=== PATIENT | female | born 1980 | race Caucasian/White ===

== ENCOUNTER 2017-04-20 12:20 | Emergency (ER) | payer SELFPAY ==
--- NOTE | 2017-04-20 12:29 | EDM.PDOC ---
ED HPI GENERAL MEDICAL PROBLEM - General Chief Complaint: Lower Extremity Injury/Pain Stated Complaint: PT HURT RT FOOT Time Seen by Provider: 04/20/17 12:23 - History of Present Illness INITIAL COMMENTS - FREE TEXT/NARRATIVE: HISTORY AND PHYSICAL: History of present illness: Patient is a 36-year-old white female she thinks her right hip and buttock pain x2-3 months she's been seen by her private physician and has a more peripheral but she is yet to secure she is on gabapentin and is also use other medications without significant improvement she has had a short course of steroids although she states this was more related to heel spurs but does comment that this did not improve her buttock or hip pain. No fever chills or other complaints she has been given a pulmonary diagnosis of sciatica for which they've been trying to treat. Review of systems: As per history of present illness and below otherwise all systems reviewed and negative. Past medical history: As per history of present illness and as reviewed below otherwise noncontributory. Surgical history: As per history of present illness and as reviewed below otherwise noncontributory. Social history: No reported history of drug or alcohol abuse. Family history: As per history of present illness and as reviewed below otherwise noncontributory. Physical exam: HEENT: Atraumatic, normocephalic, pupils reactive, negative for conjunctival pallor or scleral icterus, mucous membranes moist, throat clear, neck supple, nontender, trachea midline. Lungs: Clear to auscultation, breath sounds equal bilaterally, chest nontender. Heart: S1S2, regular, negative for clicks, rubs, or JVD. Abdomen: Soft, nondistended, nontender. Negative for masses or hepatosplenomegaly. Negative for costovertebral tenderness. Pelvis: Stable nontender. Genitourinary: Deferred. Rectal: Deferred. Extremities: Atraumatic, negative for cords or calf pain. Neurovascular unremarkable. Neuro: Awake, alert, oriented. Cranial nerves II through XII unremarkable. Cerebellum unremarkable. Motor and sensory unremarkable throughout. Exam nonfocal. Back: Patient has pain over right sciatic notch Diagnostics: X-ray right hip with pelvis Therapeutics: Toradol 60 mg IM Impression: #1 probable sciatica Definitive disposition and diagnosis as appropriate pending reevaluation and review of above. - Related Data Allergies Allergy/AdvReac Type Severity Reaction Status Date / Time No Known Allergies Allergy Verified 03/16/15 16:09 Home Meds: Home Meds Norgestimate-Ethinyl Estradiol [Sprintec] 1 tab PO DAILY 03/16/15 [History] Omeprazole [Prilosec] 20 mg PO 03/16/15 [History] Social & Family History - Tobacco Use Smoking Status *Q: Never Smoker Second Hand Smoke Exposure: No - Alcohol Use Days Per Week of Alcohol Use: 0 - Recreational Drug Use Recreational Drug Use: No Review of Systems - Review of Systems Review Of Systems: ROS reveals no pertinent complaints other than HPI. ED EXAM, GENERAL - Physical Exam Exam: See Below (See dictated) Course - Vital Signs Last Recorded V/S: Last Vital Signs Temp 36.4 C 04/20/17 12:32 Pulse 96 04/20/17 12:32 Resp 18 04/20/17 12:32 BP 103/64 04/20/17 12:32 Pulse Ox 96 04/20/17 12:32 - Orders/Labs/Meds Orders: Active Orders 24 hr Category Date Time Status Hip Min 1V w Pelvis Rt [CR] Stat Exams 04/20/17 12:30 Ordered Meds: Medications Discontinued Medications Generic Name Dose Route Start Last Admin Trade Name Freq PRN Reason Stop Dose Admin Ketorolac Tromethamine 60 mg 04/20/17 12:30 Toradol IM 04/20/17 12:31 ONETIME ONE Departure - Departure Time of Disposition: 12:39 Disposition: Home, Self-Care 01 Condition: good Clinical Impression: Sciatica - Discharge Information Forms: ED Department Discharge Additional Instructions: The following information is given to patients seen in the emergency department who are being discharged to home. This information is to outline your options for follow-up care. We provide all patients seen in our emergency department with a follow-up referral. The need for follow-up, as well as the timing and circumstances, are variable depending upon the specifics of your emergency department visit. If you don't have a primary care physician on staff, we will provide you with a referral. We always advise you to contact your personal physician following an emergency department visit to inform them of the circumstance of the visit and for follow-up with them and/or the need for any referrals to a consulting specialist. The emergency department will also refer you to a specialist when appropriate. This referral assures that you have the opportunity for followup care with a specialist. All of these measure are taken in an effort to provide you with optimal care, which includes your followup. Under all circumstances we always encourage you to contact your private physician who remains a resource for coordinating your care. When calling for followup care, please make the office aware that this follow-up is from your recent emergency room visit. If for any reason you are refused follow-up, please contact the [facility] emergency department at and asked to speak to the emergency department charge nurse. Followup with orthopedic surgery as discussed follow up primary medical doctor in one to 2 days and return as needed as discussed - My Orders Last 24 Hours: My Active Orders 04/20/17 12:30 Hip Min 1V w Pelvis Rt [CR] Stat - Assessment/Plan Last 24 Hours: My Active Orders 04/20/17 12:30 Hip Min 1V w Pelvis Rt [CR] Stat
[2017-04-20] MEDS ORDERED: Ketorolac 60 MG/2 ML SDV IM ONE (12:30)
[2017-04-20 13:47] VITALS: BP 93/55
--- NOTE | 2017-04-22 14:34 | CR ---
EXAM DATE: 04/20/17 PATIENT'S AGE: 36 Patient: CLAUDIO SEVILLA Facility: [place], [place] Site . Site : [id number] Study: XRay Extremity Right [id number]/3/2017 1:24:49 PM Ordering Physician: Kendal Musa Final Report: Indication: Right hip pain. Comparison: None. Findings: Surgical clips overlying the pelvis. Bony mineralization is normal. The joint spaces are preserved and no fracture nor dislocation is identified. The sacroiliac joints are intact. Visualized lower lumbar spine is normal. Impression: No acute abnormality pelvis/right hip. Dictated by Sonia Zhou MD @ Apr 20 2017 2:09PM (Electronic Signature) Report Signed by Proxy. CARIDAD
== END 2017-04-20 13:40 | disposition home or self-care (01) ==
LOC: MW.ED 12:20
DX: M54.31 Sciatica, right side (principal); Z79.899 Other long term (current) drug therapy
CPT/HCPCS: 73501; 96372; 99283; J1885

== ENCOUNTER 2021-08-06 17:27 | Emergency (ER) | payer OTHER ==
[2021-08-06] MEDS ORDERED: Ketorolac 30 MG/ML SDV IVPUSH ONE (17:56)
[2021-08-06] MEDS ORDERED: Sodium Chloride 0.9% 1,000 ML IV ONE (17:56)
[2021-08-06] MEDS ORDERED: LORazepam 2 MG/ML SDV IVPUSH ONE (17:56)
--- NOTE | 2021-08-06 18:00 | EDM.PDOC ---
ED HPI GENERAL MEDICAL PROBLEM - General Chief Complaint: Headache Stated Complaint: MIGRAINE, NAUSEA Time Seen by Provider: 08/06/21 17:28 Source of Information: Reports: Patient History Limitations: Reports: No Limitations - History of Present Illness INITIAL COMMENTS - FREE TEXT/NARRATIVE: HISTORY AND PHYSICAL: History of present illness: Patient is a 41-year-old female who presents to the emergency room with complaints of migraine headache, nausea and light sensitivity. She states she was shopping this afternoon when the headache came on suddenly. She denies any injury, trauma or falls. She states the pain starts at the base of her scalp and wraps to the top of her head. She typically has migraines that are just directly behind the eye. She took Zofran ODT prior to arrival as she thought she was going to vomit. Patient denies any fever, chills, change in vision, syncope or near syncope. Denies any chest pain, back pain, shortness of breath or cough. Denies any abdominal pain, vomiting, diarrhea, constipation or dysuria. No concern for , hysterectomy. Patient has been eating and drinking appropriately. Review of systems: As per history of present illness and below otherwise all systems reviewed and negative. Past medical history: As per history of present illness and as reviewed below otherwise noncontributory. Surgical history: As per history of present illness and as reviewed below otherwise noncontributory. Social history: See social history for further information Family history: As per history of present illness and as reviewed below otherwise noncontributory. Physical exam: General: Well developed and well nourished 41-year-old female. Alert and orientated x 3. Nontoxic in appearance and in no acute distress. Vital signs are stable and have been reviewed by me. Nursing notes were reviewed. HEENT: Atraumatic, normocephalic, pupils equal and reactive bilaterally, negative for conjunctival pallor or scleral icterus, mucous membranes moist, TMs normal bilaterally, throat clear, neck supple, nontender, trachea midline. No drooling or trismus noted. No meningeal signs. No hot potato voice noted. Lungs: Clear to auscultation bilaterally. No wheezes, rales, or rhonchi. Chest nontender. Normal work of breathing, no accessory muscles used. Heart: S1S2, regular rate and rhythm without overt murmur, gallops, or rubs. No JVD. No peripheral edema Abdomen: Soft, nondistended, nontender. Normoactive bowel sounds. Negative for masses or costovertebral tenderness. C-spine/Back: No pinpoint vertebral tenderness upon palpation. No crepitus, step-offs or obvious deformities. Patient is ambulatory into the emergency room without difficulty or deficit. Denies any urinary or fecal incontinence. Denies any numbness, tingling or saddle paresthesia. No concerns of serious infection, fracture or cord compression, or cauda equina syndrome. Deep tendon reflexes brisk bilaterally. Skin: Intact, warm, dry. No lesions or rashes noted. Hematologic: No petechiae or purpra. Mucosa appropriate color and normal nail bed color and refill. Extremities: Atraumatic, moves all extremities per self without difficulty or deficits, negative for cords or calf pain. Neurovascular unremarkable. Neuro: Awake, alert, oriented. Cranial nerves II through XII unremarkable. Cerebellum unremarkable. Motor and sensory unremarkable throughout. Exam nonfocal. Psychiatric: Mood and affect are appropriate. Normal thought process. Answering questions appropriately. Please note that the patient was seen and evaluated during the 2019 SARS-CoV-2 novel coronavirus pandemic period. Community viral transmission is ongoing at time of this encounter and the emergency department is operating under pandemic response procedures. Medical Decision Making: Patient is a 41-year-old who presents to the emergency room with migraine headache, nausea and light sensitivity. She does have a history of migraines but states this 1 feels different than her usual ones. Due to her long list of medications, the typical migraine cocktail I would use interacts. She also took Zofran prior to arrival. We discussed risks versus benefits of a head CT and she would like to move forward with having the CT completed. CT shows no acute intracranial hemorrhage or mass effect. She has a partially empty sella may represent an anatomic variant, though raises the possibility of idiopathic intracranial hypertension in an appropriate clinical setting. I have talked with the patient about today's findings, in addition to providing specific details for plan of care. I've encouraged her to follow up with neurology for her chronic migraines. VSS. She feels improved after medications. Reassessment at the time of disposition demonstrates that the patient is in no acute distress. The patient is stable for discharge, counseling was provided and we discussed in great detail signs and symptoms that would prompt them to return to the Emergency Department. Medication, follow up and supportive care measures were reviewed and discussed. Voices understanding and is agreeable to plan of care. Denies any further questions or concerns at this time. Diagnostics: Head CT Therapeutics: IV fluid, Ativan, Toradol Prescription: None Impression: Migraine headache Plan: 1. You were evaluated today on an emergent basis. Your CT scan is unremarkable with the exception of the anatomic variant that we discussed.. 2. You can alternate Tylenol and ibuprofen as needed for pain and fever management. 3. We encourage you to follow up with your primary care provider and/or recommended specialist in the next few days for re-evaluation and further care/management. 4. If your symptoms should worsen, new symptoms develop or any of the signs and symptoms we discussed should arise please return to the emergency room or call 911 (if needed). Definitive disposition and diagnosis as appropriate pending reevaluation and review of above. head Pain Score (Numeric/FACES): 10 - Related Data Allergies Allergy/AdvReac Type Severity Reaction Status Date / Time ciprofloxacin [From Cipro] Allergy Anaphylactic Verified 04/20/17 12:41 Shock Latex, Natural Rubber Allergy Hives Verified 04/20/17 12:41 Home Meds: Home Meds Acetaminophen/Butalbital/Caff [Fioricet 325-50-40 MG] 08/06/21 [History] Amitriptyline [Elavil] 50 mg PO BEDTIME 08/06/21 [History] Hydrocodone/Acetaminophen [HYDROcodone-Acetaminophen 10-325 MG] 1 each PO TID 08/06/21 [History] Hydrocortisone Acetate 25 gm PO DAILY 08/06/21 [History] Pantoprazole Sodium 40 mg PO BID 08/06/21 [History] SUMAtriptan [Imitrex] 25 mg PO 08/06/21 [History] buPROPion [Wellbutrin] 300 mg PO DAILY 08/06/21 [History] tiZANidine HCl [Tizanidine HCl] 1 dose PO ASDIRECTED 08/06/21 [History] Past Medical History Neurological History: Reports: Migraines, Other (See Below) Other Neuro History: siactica Psychiatric History: Reports: Anxiety, Depression, Panic Attack - Infectious Disease History Infectious Disease History: Reports: Chicken Pox - Past Surgical History GI Surgical History: Reports: Other (See Below) Other GI Surgeries/Procedures: gastric bypass Social & Family History - Tobacco Use Tobacco Use Status *Q: Unknown Ever Used Tobacco - Caffeine Use Caffeine Use: Reports: Coffee Caffeine Use Comment: 4 cups/day ED ROS GENERAL - Review of Systems Review Of Systems: Comprehensive ROS is negative, except as noted in HPI. - Physical Exam Exam: See Below (See dictation) Course - Vital Signs Last Recorded V/S: Last Vital Signs Temp 98.0 F 08/06/21 17:51 Pulse 94 08/06/21 17:51 Resp 18 08/06/21 17:51 BP 123/77 08/06/21 17:51 Pulse Ox 99 08/06/21 17:51 - Orders/Labs/Meds Meds: Medications Discontinued Medications Generic Name Dose Route Start Last Admin Trade Name Avis PRN Reason Stop Dose Admin Sodium Chloride 1,000 mls @ 999 mls/hr 08/06/21 17:56 08/06/21 18:20 Normal Saline IV 08/06/21 18:56 999 mls/hr STAT ONE Administration Ketorolac Tromethamine 30 mg 08/06/21 17:56 08/06/21 18:20 Ketorolac 30 Mg/Ml Sdv IVPUSH 08/06/21 17:57 30 mg ONETIME ONE Administration Lorazepam 1 mg 08/06/21 17:56 08/06/21 18:20 Lorazepam 2 Mg/Ml Sdv IVPUSH 08/06/21 17:57 1 mg ONETIME ONE Administration Departure - Departure Time of Disposition: 19:15 Disposition: Home, Self-Care 01 Clinical Impression: Migraine - Discharge Information Instructions: Migraine Headache, [id number] Referrals: PCP,Not In Area [Primary Care Provider] - Forms: ED Department Discharge Additional Instructions: The following information is given to patients seen in the emergency department who are being discharged to home. This information is to outline your options for follow-up care. We provide all patients seen in our emergency department with a follow-up referral. The need for follow-up, as well as the timing and circumstances, are variable depending upon the specifics of your emergency department visit. If you don't have a primary care physician on staff, we will provide you with a referral. We always advise you to contact your personal physician following an emergency department visit to inform them of the circumstance of the visit and for follow-up with them and/or the need for any referrals to a consulting specialist. The emergency department will also refer you to a specialist when appropriate. This referral assures that you have the opportunity for follow-up care with a specialist. All of these measure are taken in an effort to provide you with optimal care, which includes your follow-up. Under all circumstances we always encourage you to contact your private physician who remains a resource for coordinating your care. When calling for follow-up care, please make the office aware that this follow-up is from your recent emergency room visit. If for any reason you are refused follow-up, please contact the [facility] Emergency Department at and asked to speak to the emergency department charge nurse. [facility] [address] [place] [address] [id number] [id number] Thank you for choosing the [facility] emergency department in [place] for your medical needs today. It was a pleasure caring for you. Today you were seen in the emergency department for migraine headache 1. You were evaluated today on an emergent basis. Your CT scan is unremarkable with the exception of the anatomic variant that we discussed.. 2. You can alternate Tylenol and ibuprofen as needed for pain and fever management. 3. We encourage you to follow up with your primary care provider and/or neurology in the next few days for re-evaluation and further care/management. 4. If your symptoms should worsen, new symptoms develop or any of the signs and symptoms we discussed should arise please return to the emergency room or call 911 (if needed). Sepsis Event Note (ED) - Evaluation Sepsis Screening Result: No Definite Risk - Focused Exam Vital Signs: Vital Signs Temp Pulse Resp BP Pulse Ox 08/06/21 17:51 98.0 F 94 18 123/77 99
--- NOTE | 2021-08-06 19:08 | CT ---
INDICATION: Sudden headache. TECHNIQUE: Noncontrast CT images acquired through the brain. COMPARISON: None. FINDINGS: The ventricles and sulci are within normal limits for patient age. No mass effect or midline shift. The sumner-white differentiation is maintained. No acute intracranial hemorrhage or pathologic extra-axial fluid collection. Partially empty sella. The globes are symmetric. The calvarium is intact. Mild maxillary sinus mucosal thickening. Trace bilateral mastoid effusions. IMPRESSION: 1. No acute intracranial hemorrhage or mass effect. 2. Partially empty sella may represent an anatomic variant, though raises the possibility of idiopathic intracranial hypertension in an appropriate clinical setting. Please note that all CT scans at this facility use dose modulation, iterative reconstruction, and/or weight-based dosing when appropriate to reduce radiation dose to as low as reasonably achievable. Dictated by Juan Manuel Ramon MD @ 08/06/2021 7:07:11 PM (Electronically Signed)
[2021-08-06 19:31] VITALS: BP 106/63; PULSE 84
== END 2021-08-06 19:31 | disposition home or self-care (01) ==
LOC: MW.ED 17:27
DX: G43.909 Migraine, unspecified, not intractable, without status migrainosus (principal); F17.200 Nicotine dependence, unspecified, uncomplicated; Z88.8 Allergy status to other drugs, medicaments and biological substances; Z91.040 Latex allergy status; Z79.899 Other long term (current) drug therapy
CPT/HCPCS: 70450; 96374; 96375; 99283; J1885; J2060; J7030